=== PATIENT | male | born 1970 ===

== ENCOUNTER 2022-06-21 09:28 | Day surgery (SDC) | payer OTHER, SELFPAY ==
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
[2022-06-21] MEDS: 0.9 % Sodium Chloride 1,000 ML 50 ML IVCONT (09:57)
[2022-06-21 10:09] LABS: Glucose, Whole Blood 86 mg/dL (60-115)
[2022-06-21 10:28] LABS: Amphetamine Screen Urine Not Detected (Not Detect); Barbiturates, Urine Not Detected (Not Detect); Benzodiazepines Screen Urine Not Detected (Not Detect); Cannabinoid Screen Urine POSITIVE (Not Detect); Cocaine Screen Urine Not Detected (Not Detect); Fentanyl, urine Not Detected (Not Detect); Opiate Screen Urine Not Detected (Not Detect); Phencyclidine Screen Urine Not Detected (Not Detect)
[2022-06-21 10:33] VITALS: BP 197/77; PULSE 62; RESP 18; TEMP 36.6; O2SAT 96
[2022-06-21 10:42] LABS: Anion Gap 15 (12-20); Carbon Dioxide 31 mmol/L (22-29); Chloride 98 mmol/L (96-108); Potassium 4.1 mmol/L (3.3-5.1); Sodium 140 mmol/L (135-145)
--- NOTE | 2022-06-21 11:12 | PC.NURSE ---
Anti aware of lowest bp result of 197/77 and which medication pt took this a.m. okay to proceed per doctor.
[2022-06-21 14:10] VITALS: BP 197/107; PULSE 78; RESP 20; TEMP 36.3; O2SAT 100
--- NOTE | 2022-06-21 14:11 | P.OP_ITS ---
Operative Note Operative Note Date of Service: 06/21/22 Narrative: Pre-op Dx: ESRD Post-op Dx: ESRD Operation: Left arm distal radiocephalic AV fistula Surgeon: Luis Miguel Cortez MD Anesthesia: MAC, local Procedure: The patient was placed on the OR table in a supine position. Lower extremity compression devices were placed. The anesthesiologist administered the pre- operative antibiotic. An US of the veins was performed on the left arm. After successful induction of MAC anesthesia, the left arm was prepped and draped in a sterile fashion. A surgical timeout took place. Local anesthetic was used. An incision was made at the wrist between the radial artery pulse and the forearm cephalic vein. The Bovie electrocautery was used to dissect through the subcutaneous tissue. The forearm cephalic vein was isolated and skeletonized. Small branches were ligated and divided with 4-0 silk ties. The cephalic vein was distended using hep-saline and dilators. The radial artery was identified, dissected and skeletonized. There was mild intimal calcification. Small branches were ligated and divided using 4-0 silk ties. Proximal and distal control was achieved. An arteriotomy was made and the cephalic vein was directly sewn to the radial artery using a 6-0 Prolene in a running fashion. The clamps were released and a soft pulsatile thrill was noted. Hemostasis was maintained. The incision was closed in layers. Surgical glue was applied. The hand was well perfused. The patient tolerated the procedure well. All instrument, sponge and needle counts were correct at the end of the case.
[2022-06-21 14:15] VITALS: BP 219/102; PULSE 85; RESP 17; O2SAT 99
[2022-06-21 14:20] VITALS: BP 219/77; PULSE 72; RESP 18; O2SAT 99
[2022-06-21] MEDS: oxyCODONE HCl Immed Release 5 MG TABLET PO (14:23)
[2022-06-21 14:25] VITALS: BP 227/108; PULSE 74; RESP 17; O2SAT 99
[2022-06-21 14:40] VITALS: BP 180/86; PULSE 81; RESP 20; TEMP 36.4; O2SAT 98
== END 2022-06-21 15:00 | disposition home or self-care (01) ==
PROVIDERS: Nurse Practitioner; PCP Nurse Practitioner Family; Visit Provider Transplant Surgery
PROC: (CPT 36821; principal; 2022-06-21 11:40)
DX: I13.2 Hypertensive heart and chronic kidney disease with heart failure and with stage 5 chronic kidney disease, or end stage renal disease (principal); I50.89 Other heart failure; N18.6 End stage renal disease; Z99.2 Dependence on renal dialysis; I50.20 Unspecified systolic (congestive) heart failure; G62.9 Polyneuropathy, unspecified; K21.9 Gastro-esophageal reflux disease without esophagitis; E78.2 Mixed hyperlipidemia; G47.33 Obstructive sleep apnea (adult) (pediatric); F33.9 Major depressive disorder, recurrent, unspecified; F41.1 Generalized anxiety disorder; F12.90 Cannabis use, unspecified, uncomplicated; F19.11 Other psychoactive substance abuse, in remission; Z79.899 Other long term (current) drug therapy; Z87.891 Personal history of nicotine dependence; Z88.1 Allergy status to other antibiotic agents
CPT/HCPCS: 36821; 36415; 80051; 80307; 82947; J0690; J2250; J3010

== ENCOUNTER 2023-11-13 23:59 | Outpatient (BNV) | payer MEDICARE, MEDICAID, SELFPAY | END 2023-11-14 23:59 | PROVIDERS: PCP Nurse Practitioner Family; Visit Provider Internal Medicine | DX: R55 Syncope and collapse (principal); R79.89 Other specified abnormal findings of blood chemistry | CPT/HCPCS: 99223 ==